=== PATIENT | male | born 2000 ===

== ENCOUNTER 2021-05-24 23:33 | Emergency (ER) | payer MEDICAID ==
[~2021-05-24] VITALS: Ht 177.8 cm; Wt 72.6 kg
[2021-05-25 03:05] VITALS: BP 116/77
== END 2021-05-25 06:34 | disposition home or self-care (01) ==
LOC: ER 23:33
DX: J03.90 Acute tonsillitis, unspecified (principal); Z20.822 Contact with and (suspected) exposure to COVID-19
CPT/HCPCS: 36415; 87426; 87804